=== PATIENT | female | born 1960 | race African-American/Black ===

== ENCOUNTER 2016-07-05 21:16 | Observation (INO) | payer BC ==
--- NOTE | ~2016-07-05 | HP ---
History And Physical [place] [id number] [facility] [place]. [address] NAME: JIMMY CALVILLO : 62 STATUS : ADM Sharon PAT#: [id number] AGE: 55 ADM/REG DATE : 07/05/16 MR#: [id number] REPORT SERV DATE: 07/06/16 DICTATED BY: ALENA STEIN DATE: 07/06/16 REPORT STATUS : Draft TRANSCRIBED BY: RENETTA DATE: 07/06/16 DATE OF ADMISSION: 07/05/2016 CHIEF COMPLAINT: Atypical chest pain. HISTORY OF PRESENT ILLNESS: A very pleasant 55-year-old morbidly obese black female presents with atypical chest pain. She reports that over the past 1 to 2 weeks she has had increased fluid in her lower extremities and was recently switched to Bumex 2 mg twice daily. On 07/05/2016, around 1300, while at rest, she experienced some left-sided chest pain indicating under her left breast and her heart was racing. She called her insurance provider, who recommended that she go to the emergency room. She describes associated shortness of breath, nausea, and dizziness. Denies any diaphoresis or belching. At its most intense, the chest discomfort was rated an 8/10. At time of interview in the CPOU, she rates it a 5/10. She states her symptoms were somewhat improved after nitroglycerin sublingual provided in the emergency room. The patient denies any personal history of myocardial infarction, stroke, or pulmonary embolus. She does report a lower extremity DVT with . The patient denies any recent fever or chills. Does describe occasional palpitations. No syncopal episodes. Denies PND or orthopnea. PAST MEDICAL HISTORY: 1. Hypertension. 2. AODM. 3. Cholesterol per PCP and reportedly "good.". 4. Rheumatoid arthritis. 5. Lupus. 6. Fibromyalgia. 7. A BMI greater than 40. 8. DDD. SURGICAL HISTORY: 1. Left shoulder surgery. 2. Right knee surgery. 3. Cholecystectomy. 4. Tonsillectomy. 5. Hysterectomy. SOCIAL HISTORY: She is single with three children. Disabled. Does not have an exercise routine. Denies tobacco, alcohol, or illicits. FAMILY HISTORY: Mother of a stroke at 73. Father's medical history unknown. REVIEW OF SYSTEMS: A 14-point review of systems performed, significant for HPI. No other contributory diagnoses identified. History And Physical [address] [place]. [address] NAME: JIMMY CALVILLO : 62 STATUS : ADM Sharon PAT#: [id number] AGE: 55 ADM/REG DATE : 07/05/16 MR#: [id number] REPORT SERV DATE: 07/06/16 DICTATED BY: ALENA STEIN DATE: 07/06/16 REPORT STATUS : Draft TRANSCRIBED BY: RENETTA DATE: 07/06/16 ALLERGIES: TO ADHESIVES AND LATEX, RASH. MEDICATIONS: Home medicines are albuterol MDI p.r.n., albuterol nebulizer p.r.n., Symbicort 160/4.5 two puffs twice daily, Bumex 2 mg twice daily, Flexeril 10 mg three times daily, gabapentin 300 mg three times daily, lisinopril 10 mg daily, magnesium oxide 400 mg daily, methotrexate 10 mg on Friday, metoprolol tartrate 100 mg twice daily, Beth 20 mg twice daily, Percocet 10/325 three times daily p.r.n., potassium 10 mEq daily, prednisone 5 mg twice daily, Phenergan 25-mg tablet p.r.n., Imitrex p.r.n., Enbrel 50 mg weekly, and metformin 1000 mg twice daily. PHYSICAL EXAMINATION: BLOOD PRESSURE: Bilateral blood pressures on arrival, right 137/82, left 120/67. HEART RATE: 98. RESPIRATORY RATE: 18. TEMPERATURE: 97.8. O2 saturation 99% on room air. HEIGHT: 5 feet 8 inches. WEIGHT: 511 pounds. BMI 78. GENERAL: Cooperative, in no apparent distress. HEENT: Pupils 2 mm, sclera nonicteric. Nares patent. Moist mucous membranes. No xanthelasma. NECK: Trachea midline, no thyromegaly. No JVD. No bruits. LYMPH: No cervical lymphadenopathy. No supraclavicular lymphadenopathy. RESPIRATORY: Unlabored respirations. Breath sounds clear bilaterally to posterior auscultation. No wheezes or rhonchi. CARDIOVASCULAR: Distant heart tones. Otherwise, regular rhythm. No murmur, rub, or gallop appreciated. Normal carotids. Extremities, 2+ to 3+ bilateral lower extremity edema. Pulses 2+ bilaterally. ABDOMEN: Obese, hypoactive bowel sounds. No organomegaly appreciated. SKIN: Warm, dry extremities. No pallor, or cyanosis. PSYCHIATRIC: Appropriate affect. Alert, oriented x3. LABORATORY DATA: Troponin less than 0.02 x3. Potassium 4.2, BUN 9, creatinine 0.84, glucose 109, and magnesium 1.8. BNP 4.1. WBC of 7.3, hemoglobin 12.1, hematocrit 36.3, and platelet count 307,000. EKG: Sinus rhythm, PRWP. Echo, 2006: EF 66%. MPI, 01/2015: No ischemia. CTA of chest, no PE and coronaries are not calcified. ASSESSMENT AND PLAN: 1. Atypical chest pain in a patient unfortunately whose weight exceeds our stress testing tables. Three sets of cardiac markers are negative. EKG is stable. CTA of chest indicates no coronary calcifications with most recent MPI, 01/2015, negative for ischemia. The patient will be discharged home to follow up with her PCP. She has been encouraged should symptoms worsen, return, or be limiting to return to our emergency room for further evaluation. History And Physical [address] [address] NAME: JIMMY CALVILLO : 62 STATUS : ADM Sharon PAT#: [id number] AGE: 55 ADM/REG DATE : 07/05/16 MR#: [id number] REPORT SERV DATE: 07/06/16 DICTATED BY: ALENA STEIN DATE: 07/06/16 REPORT STATUS : Draft TRANSCRIBED BY: RENETTA DATE: 07/06/16 2. Hypertension, resume home medications. 3. Palpitations, we will add metoprolol 50 mg at lunch in an attempt to better control palpitations, will follow up with her PCP. 4. Lower extremity edema, recently switched to Bumex, patient will inquire about Lymphed[facility] Clinic at [facility] which she has attended in the past. 5. BMI of 78, diet and exercise recommended but activity limited secondary to multiple orthopedic issues, rheumatoid arthritis, and fibromyalgia. This lady would greatly benefit from a water aerobics program should she be able to afford and participate. ARCHANA/RENETTA JANNIE Jaime, SABRINA / [id number] CC: JANNIE Jaime, SABRINA Drummond
[2016-07-05 20:29] LABS: BASOPHILS 0.5 %; BASOPHILS ABSOLUTE 0.04 10/3/uL (0.0-0.16); EOSINOPHILS 2.1 %; EOSINOPHILS ABSOLUTE 0.15 10/3/uL (0.0-0.53); ER CBC TAT 0 Hrs 07 Mins; HEMATOCRIT 36.9 % (36.0-48.0); HEMOGLOBIN 12.1 g/dL (12.0-16.0); IMMATURE GRANULOCYTES 0.3 %; IMMATURE GRANULOCYTES ABSOLUTE 0.02 10/3/uL (0.0-0.11); LYMPHOCYTES 37.7 %; LYMPHOCYTES ABSOLUTE 2.75 10/3/uL (0.67-4.30); MANUAL DIFF NO %; MEAN CORPUS HGB CONC 32.8 g/dL (32.0-36.0); MEAN CORPUSCULAR HEMOGLOB 26.6 pg (26.0-34.0); MEAN CORPUSCULAR VOLUME 81.1 fL (80-100); MEAN PLATELET VOLUME 9.6 fL (9.2-13.0); MONOCYTES 9.1 %; MONOCYTES ABSOLUTE 0.66 10/3/uL (0.21-1.20); NEUTROPHILS 50.3 %; NEUTROPHILS ABSOLUTE 3.67 10/3/uL (2.02-8.40); PLATELET COUNT 307 10/3/uL (150-400); RBC DISTRIBUTION WIDTH 15.8 % (12.0-16.0); RED CELL COUNT 4.55 10/6/uL (4.0-5.6); WHITE BLOOD CELLS 7.3 10/3/uL (4.5-10.5)
[2016-07-05 20:35] LABS: INTERNATIONAL NORMAL RATI 1.1 UNITS (-); PROTIME (NOT ORD) 14.1 SEC (12.0-14.5)
[2016-07-05 20:36] LABS: PARTIAL THROMBO TIME 29.3 SEC (22.5-37.2)
[2016-07-05 20:47] LABS: BUN (BLOOD UREA NITROGEN) 9 MG/DL (6-23); CALCIUM, SERUM 9.3 MG/DL (8.5-10.4); CHEST PAIN PROFILE TAT 0 Hrs 25 Mins; CHLORIDE, SERUM 104 MMOL/L (96-112); CO2 (CARBON DIOXIDE) 31 MMOL/L (24-34); CREATININE 0.84 MG/DL (0.55-1.02); GFR AFRICAN AMERICAN 91 ML/MIN (>=60); GFR NON AFRICAN AMERICAN 79 ML/MIN (>=60); GLUCOSE, SERUM 109 MG/DL (60-99); POTASSIUM, SERUM 4.2 MMOL/L (3.5-5.3); SODIUM, SERUM 141 MMOL/L (135-148); TROPONIN I <0.02 NG/ML (<0.05)
[~2016-07-05 21:16] MED LIST: ADVAIR250 INH; ALBUTEROL5 INH; ARTHROTEC 75 PO; BENTYL10 PO; BYETTA10 SC; CLARIT10 PO; COENZYME Q10 PO; CYMBALTA30 PO; CYMBALTA60 PO; ENBREL25 MG SC; ENBREL50 MG/M1 SC; FLEX PO; GLUCOPHAGE1000 MG PO; IMITREX100 MG PO; K500 PO; KAPIDEX60 MG PO; KDUR10 PO; KDUR20 PO; KEPPRA XR500 MG PO; L40 PO; LIBRAX PO; LOP100 PO; LORTAB10 PO; LYRICA50 PO; MAGOX4 PO; MAXAIR AUTOHALE1 INH INH; MIRALAXPKT PO; MOBIC15 MG PO; MOBIC7.5 PO; MTX2.5 PO; NEBULIZER; NEUR300 PO; NEUR600 PO; NEXIUM40 PO; P5 PO; PR25 PO; PRIN10 PO; PROAIR HFA INH; PROTONIX PO; QVAR 80 MCG80 MCG INH; TURMERIC PO
[2016-07-06] MEDS ORDERED: P5 PO (00:54)
[2016-07-06] MEDS ORDERED: PERCOCET 10/3251 TAB PO (00:56)
[2016-07-06] MEDS ORDERED: PROVHFA INH (00:57)
[2016-07-06] MEDS ORDERED: SYMBICORT 160/41 INH INH (00:57)
[2016-07-06] MEDS ORDERED: MTX2.5 PO (00:57)
[2016-07-06] MEDS ORDERED: ALBUTEROL0.63 MG/3 INH (00:57)
[2016-07-06] MEDS ORDERED: PRIN10 PO (00:58)
[2016-07-06] MEDS ORDERED: LOP100 PO (00:58)
[2016-07-06] MEDS ORDERED: IMITREX100 MG PO (00:58)
[2016-07-06] MEDS ORDERED: BUM2 PO (00:58)
[2016-07-06] MEDS ORDERED: NEUR300 PO (00:59)
[2016-07-06] MEDS ORDERED: FLEX PO (00:59)
[2016-07-06] MEDS ORDERED: KDUR10 PO (00:59)
[2016-07-06] MEDS ORDERED: PR25 PO (01:00)
[2016-07-06] MEDS ORDERED: KADIANSR20 PO (01:00)
[2016-07-06] MEDS ORDERED: MAGOX4 PO (01:01)
[2016-07-06] MEDS ORDERED: ENBREL SURECLICK SC (01:02)
[2016-07-06] MEDS ORDERED: GLUCOPHAGE1000 MG PO (10:24)
[2016-07-06] MEDS ORDERED: LOP50 PO (10:25)
== END 2016-07-06 12:09 | disposition home or self-care (01) ==
LOC: ER 21:16 → CDU1 21:30
PROVIDERS: Emergency Medicine
DX: R07.89 Other chest pain (principal); I10 Essential (primary) hypertension; E11.9 Type 2 diabetes mellitus without complications; E66.01 Morbid (severe) obesity due to excess calories; Z68.45 Body mass index [BMI] 70 or greater, adult; M06.9 Rheumatoid arthritis, unspecified; M32.9 Systemic lupus erythematosus, unspecified; M79.7 Fibromyalgia; Z90.49 Acquired absence of other specified parts of digestive tract; Z90.89 Acquired absence of other organs; Z90.710 Acquired absence of both cervix and uterus; Z98.890 Other specified postprocedural states; Z82.3 Family history of stroke; Z91.09 Other allergy status, other than to drugs and biological substances; Z91.040 Latex allergy status; Z79.891 Long term (current) use of opiate analgesic; Z79.52 Long term (current) use of systemic steroids; Z79.899 Other long term (current) drug therapy
CPT/HCPCS: 71010; 71275; 80048; 82962; 83735; 83880; 84484; 85025; 85610; 85730; 93005; 99285; A9270-GY; G0378; Q9967